=== PATIENT | female | born 1995 | race Hispanic/Latino ===

== ENCOUNTER 2022-03-09 14:05 | Emergency (ER) | payer BC, SELFPAY ==
--- NOTE | 2022-03-09 14:11 | ED.URI ---
HPI - URI/Sore Throat General Chief Complaint: Upper Respiratory Infection Stated Complaint: sore throat Time Seen by Provider: 03/09/22 14:22 Source: patient and RN notes reviewed Mode of arrival: ambulatory Limitations: no limitations History of Present Illness HPI Narrative: 26-year-old female presents with concern for 2-day history of runny nose, sore throat, body aches, headache, fatigue, diarrhea. She reports she is taken allergy medicine with some relief. She denies known sick contacts. She denies cough, shortness of breath, fever, chills, sweats. She denies abdominal pain or vomiting MD elicited complaint: sore throat Related Data Home Medications Medication Instructions Recorded Confirmed cyclobenzaprine 10 mg tablet mg 03/09/22 03/09/22 Allergies Allergy/AdvReac Type Severity Reaction Status Date / Time No Known Allergies Allergy Verified 03/09/22 14:08 Review of Systems Review of Systems: CONSTITUTIONAL: Reports malaise, fatigue. Denies chills, sweats, or fever. EYES: Denies visual changes, redness, or discharge. ENT: Reports rhinorrhea, congestion, sore throat. Denies sinus pain, otalgia CARDIOVASCULAR: Denies chest pain, palpitations, or edema. RESPIRATORY: Denies cough. Denies dyspnea. GASTROINTESTINAL: Denies abdominal pain, nausea, vomiting, diarrhea SKIN: Denies rash or itching. MUSCULOSKELETAL: Reports myalgia. NEUROLOGIC: Reports headache. All systems reviewed & are unremarkable except as noted in HPI and below PMFSH Comments At time of signature, agree with nursing past medical, surgical, social and family history. There is no relevant family history pertinent to the presenting complaint Exam Narrative: GENERAL: Nontoxic-appearing and in no acute distress. HEAD: Normocephalic EYES: PERRLA, conjunctivae clear ENT: Nares clear, clear discharge. Mucous membranes moist. TM pearly montilla with sharp light reflex bilaterally; no tragal tenderness. Oropharynx not erythematous without lesions. Tonsils not enlarged and without exudate, no drooling, no hoarseness, no trismus, uvula midline. NECK: Supple. No lymphadenopathy CHEST: Clear to auscultation, breath sounds equal. No wheezing, rhonchi, rales, or stridor. No respiratory distress, speaks in full sentences. HEART: Regular rate and rhythm. No murmur heard. ABD: Bowel sounds equal in all 4 quadrants, no tenderness noted, no distention SKIN: Warm, dry, no rash. NEURO: Alert and oriented x3. PSYCH: Normal mood and affect Course Course Emergency Course: Patient is aware of diagnosis, understands and agrees to treatment plan. Anticipatory guidance given. Patient agrees to follow-up as directed and is aware of reasons to seek care at the emergency department. Portions of this record may have been created with voice recognition software Level of Care: Express Care Visit Vital Signs Vital signs: Vital Signs Temperature 98.5 F 03/09/22 14:12 Pulse Rate 94 03/09/22 14:12 Respiratory Rate 16 03/09/22 14:12 Blood Pressure 131/86 03/09/22 14:12 Pulse Oximetry 100 03/09/22 14:12 Oxygen Delivery Room Air 03/09/22 14:12 Temperature 98.5 F 03/09/22 14:12 Pulse Rate 94 03/09/22 14:12 Respiratory Rate 16 03/09/22 14:12 Blood Pressure 131/86 03/09/22 14:12 Pulse Oximetry 100 03/09/22 14:12 Oxygen Delivery Room Air 03/09/22 14:12 Reviewed. MDM - URI/Sore Throat MDM Narrative Medical decision making narrative: Differential diagnosis considered: Asif virus, strep pharyngitis, allergic rhinitis, upper respiratory tract infection, sinusitis, rhinosinusitis, nasopharyngitis. viral pharyngitis, otitis media, otitis externa, pneumonia, bronchitis, viral cough syndrome, viral syndrome, and influenza. Exam findings show no acute concerns or changes; patient is non-toxic appearing and is in no distress. Patient is appropriate for outpatient treatment and follow-up. Lab Data Attestation: I reviewed the patient's lab
[2022-03-09 14:12] VITALS: BP 131/86; PULSE 94; RESP 16; TEMP 36.9; O2SAT 100
== END 2022-03-09 14:47 | disposition home or self-care (01) ==
PROVIDERS: Emergency Provider Nurse Practitioner
DX: B34.9 Viral infection, unspecified (principal); Z86.16 Personal history of COVID-19
CPT/HCPCS: 87081; 87147; 99213; G0463

== ENCOUNTER 2022-04-08 15:42 | Emergency (ER) | payer OTHER, BC, SELFPAY ==
--- NOTE | ~2022-04-08 | XR_ITS ---
XR foot LT min 3V DATE: 04/08/2022 16:13 INDICATION: Left foot pain. Slipped yesterday at work, left foot injury TECHNIQUE: 4 views COMPARISON: None FINDINGS: No fracture or dislocation, periosteal reaction or bone destruction. Joint spaces are prese rved. No erosive change. IMPRESSION: Negative Reviewed, dictated and finalized at location A. IMPRESSION: Negative
[2022-04-08 15:55] VITALS: BP 123/60; PULSE 82; RESP 18; TEMP 36.8; O2SAT 100
--- NOTE | 2022-04-08 16:12 | ED.LOWEXIN ---
HPI - Extremity Injury (Lower) General Chief Complaint: Extremity Injury, Lower Stated Complaint: left foot pain Time Seen by Provider: 04/08/22 16:49 Source: patient and RN notes reviewed Mode of arrival: ambulatory Limitations: no limitations History of Present Illness HPI Narrative: Three 6-year-old female presents with concern for left foot pain. Reports she slipped at work yesterday causing dorsal foot pain. She reports pain worsens with weightbearing. She reports she took ibuprofen, use an Marcin wrap, and used a lidocaine patch that improved her pain. She denies open skin, warmth, redness complaint: foot injury Related Data Home Medications Medication Instructions Recorded Confirmed cyclobenzaprine 10 mg tablet mg 03/09/22 03/09/22 Allergies Allergy/AdvReac Type Severity Reaction Status Date / Time No Known Allergies Allergy Verified 03/09/22 14:08 Review of Systems Review of Systems: CONSTITUTIONAL: Denies malaise, chills, sweats, or fever. SKIN: Denies rash or itching, open skin, laceration, abrasion, redness, warmth, swelling. MUSCULOSKELETAL: Reports left knee pain NEUROLOGIC: Denies numbness, weakness All systems reviewed & are unremarkable except as noted in HPI and below PMFSH Comments At time of signature, agree with nursing past medical, surgical, social and family history. There is no relevant family history pertinent to the presenting complaint Exam Narrative: GENERAL: Well-appearing, well-nourished, and in no acute distress. HEAD: Normocephalic, atraumatic. EYES: PERRLA, conjunctivae clear NECK: Supple. CHEST: Speaks in full sentences. No respiratory distress. HEART: Regular rate and rhythm. Normal and equal peripheral pulses. EXTREMITIES: Left ankle, foot, digits have normal strength and sensation, normal range of motion. No edema or ecchymosis. 5/5 strength with ankle flexion and extension. Normal sensation with sensitivity to light touch and pain. Dorsal lateral tenderness. No open wounds, no skin tenting, no devitalized tissue or atrophy, no trophic changes, no obvious deformity, alignment normal, nearby joints and structures intact. Distal pulses palpable and equal bilaterally, skin warm, dry, pink. Capillary refill less than 3 seconds. SKIN: Warm, dry, no rash. NEURO: Alert and oriented x3. PSYCH: Normal mood and affect Course Course Emergency Course: Patient is aware of diagnosis, understands and agrees to treatment plan. Anticipatory guidance given. Patient agrees to follow-up as directed and is aware of reasons to seek care at the emergency department. Portions of this record may have been created with voice recognition software Level of Care: Express Care Visit Vital Signs Vital signs: Vital Signs Temperature 98.3 F 04/08/22 15:55 Pulse Rate 82 04/08/22 15:55 Respiratory Rate 18 04/08/22 15:55 Blood Pressure 123/60 04/08/22 15:55 Pulse Oximetry 100 04/08/22 15:55 Oxygen Delivery Room Air 04/08/22 15:55 Temperature 98.3 F 04/08/22 15:55 Pulse Rate 82 04/08/22 15:55 Respiratory Rate 18 04/08/22 15:55 Blood Pressure 123/60 04/08/22 15:55 Pulse Oximetry 100 04/08/22 15:55 Oxygen Delivery Room Air 04/08/22 15:55 Reviewed. MDM - Extremity Injury (Lower) MDM Narrative Medical decision making narrative: Patients injury and pain is consistent with musculoskeletal etiology. No signs of neurological or vascular compromise on exam. Compartments and tissues are soft without signs of compartment syndrome. Pain is felt appropriate for further evaluation on an outpatient basis. Imaging Data My impression: Images reviewed, interpreted by radiologist, agree, see report. Radiologist's impression: XR foot LT min 3V DATE: 04/08/2022 16:13 INDICATION: Left foot pain. Slipped yesterday at work, left foot injury? TECHNIQUE: 4 views? COMPARISON: None? FINDINGS: No fracture or dislocation, periosteal reaction or bone destruction. Varsha
== END 2022-04-08 16:57 | disposition home or self-care (01) ==
PROVIDERS: Emergency Provider Nurse Practitioner
DX: S93.602A Unspecified sprain of left foot, initial encounter (principal); W18.40XA Slipping, tripping and stumbling without falling, unspecified, initial encounter
CPT/HCPCS: 73630; 99213; G0463

== ENCOUNTER 2023-09-18 17:24 | Emergency (ER) | payer BC, SELFPAY ==
[2023-09-18 17:43] VITALS: BP 98/72; PULSE 111; RESP 16; TEMP 38; O2SAT 100
--- NOTE | 2023-09-18 18:24 | ED.URI ---
HPI - URI/Sore Throat General Chief Complaint: Upper Respiratory Infection Stated Complaint: Sinus Time Seen by Provider: 09/18/23 18:24 Source: patient Mode of arrival: ambulatory Limitations: no limitations History of Present Illness HPI Narrative: 27-year-old female presents with complaint of cough, nasal congestion, sore throat, fatigue, headaches, fever starting last night. Reports diarrhea today. Patient concerned that she has flu. No chest pain or shortness of breath. Took ibuprofen last night and this morning. All systems reviewed and negative except as noted above. Related Data Home Medications Medication Instructions Recorded Confirmed cyclobenzaprine 10 mg tablet 10 mg PO DIRECTED 03/09/22 09/18/23 ibuprofen 600 mg tablet 600 mg PO DIRECTED 09/18/23 09/18/23 oxycodone 5 mg tablet 5 mg PO DIRECTED 09/18/23 09/18/23 Allergies Allergy/AdvReac Type Severity Reaction Status Date / Time No Known Allergies Allergy Verified 09/18/23 17:49 Review of Systems Review of Systems: CONSTITUTIONAL: reports fever, chills, or sweats. EYES: Denies visual changes, redness, or discharge. ENT: Reports rhinorrhea, congestion, sore throat. Denies otalgia. CARDIOVASCULAR: Denies chest pain, palpitations, or edema. RESPIRATORY: reports cough. Denies dyspnea. GASTROINTESTINAL: Denies abdominal pain, nausea, vomiting. Reports diarrhea. GENITOURINARY: Denies dysuria or hematuria. SKIN: Denies rash or itching. MUSCULOSKELETAL: Denies back pain, joint pain, or myalgia. NEUROLOGIC: Denies headache, numbness, or weakness. PSYCHIATRIC: Denies anxiety or depression. All other systems reviewed are negative, except as documented in HPI. PMFSH Comments At time of signature, agree with nursing past medical, surgical, social and family history. There is no relevant family history pertinent to the presenting complaint. Exam Narrative: GENERAL: This is a well-nourished, well-developed patient, patient ill-appearing but no acute distress. HEAD: normocephalic, atraumatic. EYES: PERRL. Sclera clear/white. Vision is grossly intact. EARS: External ears normal, auditory canals clear and without drainage, TMs normal without perforation. Hearing grossly intact. NOSE: External nose normal with Clear nasal drainage, erythema to nares. THROAT: Mucous membranes moist, Erythema to posterior pharynx without swelling or exudates. NECK: Neck supple, non-tender without lymphadenopathy, masses or thyromegaly. CARDIOVASCULAR: Regular rate and rhythm without murmurs, gallops, or rubs. RESPIRATORY: Clear to auscultation. Breath sounds equal bilaterally. No wheezes, rales, or rhonchi. SKIN: warm, Dry, intact with no suspicious lesions or rash, good texture and turgor. NEURO: awake, alert, and oriented to person, place and time. There were no obvious focal neurologic abnormalities. EXTREMITIES: No joint tenderness, effusion, or edema noted. Course Course Level of Care: Express Care Visit Vital Signs Vital signs: Vital Signs Temperature 38.0 C H 09/18/23 17:43 Pulse Rate 111 H 09/18/23 17:43 Respiratory Rate 16 09/18/23 17:43 Blood Pressure 98/72 L 09/18/23 17:43 Pulse Oximetry 100 09/18/23 17:43 Oxygen Delivery Room Air 09/18/23 17:43 Temperature 38.0 C H 09/18/23 17:43 Pulse Rate 111 H 09/18/23 17:43 Respiratory Rate 16 09/18/23 17:43 Blood Pressure 98/72 L 09/18/23 17:43 Pulse Oximetry 100 09/18/23 17:43 Oxygen Delivery Room Air 09/18/23 17:43 Reviewed MDM - URI/Sore Throat MDM Narrative Medical decision making narrative: Patient is aware of diagnosis, understands and agrees to treatment plan. Anticipatory guidance given. Patient agrees to follow-up as directed and is aware of reasons to seek care at the emergency department. Portions of this record may have been created with voice recognition software Differential Diagnosis Differential diagnosis: Likely upper res
== END 2023-09-18 19:06 | disposition home or self-care (01) ==
PROVIDERS: Emergency Provider Nurse Practitioner Family; PCP Physician Assistant
DX: J11.1 Influenza due to unidentified influenza virus with other respiratory manifestations (principal); Z20.822 Contact with and (suspected) exposure to COVID-19; Z86.16 Personal history of COVID-19
CPT/HCPCS: 87081; 87426; 87804; 87880; 99213; G0463